=== PATIENT | female | born 1950 | race Caucasian/White ===

== ENCOUNTER → 2017-09-25 | Day surgery (SDC) | payer BC, MEDICARE ==
[2017-09-23 11:56] VITALS: BMI 27.4
[~2017-09-25] MED LIST: LACTATED RINGERS 1,000 ML IV SCH; LIDOCAINE 1% 20 ML VIAL (10MG/ML) FOR IV START INTRADERMA ONE; MIDAZOLAM 2 MG/2 ML VIAL IV PRN; MORPHINE SULFATE 2 MG/ML SYRINGE IV PRN; ONDANSETRON 4 MG/2 ML VIAL IVP PRN; PROPOFOL 10 MG/ML 20 ML VIAL IV ONE; SODIUM CHLORIDE 0.9% 500 ML IV ONE
[2017-09-25 10:15] VITALS: TEMP 97.6
--- NOTE | 2017-09-25 11:07 | P.PCN ---
Date of Procedure: 09/25/17 Procedure(s) Performed: BRIEF HISTORY: Patient is a 67-year-old pleasant white female, scheduled for an elective colonoscopy as a part of evaluation of change in bowel habits for the last 2 years duration. She is been having frequent stools between 5-6 a day with normal consistency but no blood or mucus in the stool. PROCEDURE PERFORMED: Colonoscopy. PREOPERATIVE DIAGNOSIS: change in bowel habits. IV sedation per Anesthesia. PROCEDURE: After informed consent was obtained, the patient, was brought into the endoscopy unit. IV sedation was administered by Anesthesia under continuous monitoring. Digital rectal examination was normal. Initially the Olympus CF- 160 flexible video colonoscope was then inserted in the rectum, gradually advanced into the distal sigmoid colon and further advancement was not possible. The scope was removed and a pediatric colonoscope was introduced into the rectum and despite multiple attempts I was not able to advance the scope beyond the sigmoid colon because of acute angle duration in this area. At this time I decided to terminate the procedure. Scattered sigmoid diverticula seen.. Retroflexion was performed in the rectum and no lesions were seen. The patient tolerated the procedure well. IMPRESSION: incomplete colonoscopy as described above Sigmoid diverticulosis RECOMMENDATIONS: Findings of this examination were discussed with the patient as well as her family. She'll be scheduled for a double contrast barium enema today.
[2017-09-25 11:15] VITALS: RESP 18
[2017-09-25 12:15] VITALS: BP 142/78; PULSE 78
--- NOTE | 2017-09-25 14:30 | FL ---
EXAMINATION TYPE: FL barium enema DATE OF EXAM: 09/25/2017 COMPARISON: NONE HISTORY: Incomplete colonoscopy, diarrhea and constipation TECHNIQUE: A double contrast barium enema study was attempted. Patient could not retain the contrast material or air. The exam was aborted. FINDINGS: Blow Off Worker view of the abdomen shows overall non-obstructive bowel gas pattern. Extensive diverticular change in the sigmoid colon is present, there is narrowing, contrast has not c oursed through this region bilaterally. Sigmoid colon is redundant. There is no extravasation from th e bowel. IMPRESSION: Exam is limited. Diverticulosis. There is likely extensive muscular hypertrophy.
== END ==
LOC: ORWHC2ENDO 09:51
PROVIDERS: ATTEND Internal Medicine Gastroenterology
DX: R19.7 Diarrhea, unspecified (principal); K57.30 Diverticulosis of large intestine without perforation or abscess without bleeding; G43.909 Migraine, unspecified, not intractable, without status migrainosus; F39 Unspecified mood [affective] disorder; Z79.82 Long term (current) use of aspirin; Z79.899 Other long term (current) drug therapy; Z79.1 Long term (current) use of non-steroidal anti-inflammatories (NSAID); Z88.1 Allergy status to other antibiotic agents; Z88.8 Allergy status to other drugs, medicaments and biological substances
CPT/HCPCS: 74270; 45330; J2704; 45378

== ENCOUNTER → 2017-09-29 | Outpatient (CLI) | payer MEDICARE ==
[2017-09-29 18:33] LABS: Blood Urea Nitrogen 17 mg/dL (7-17); Non-African American GFR(MDRD) >60 (>60 ml/min/1.73 sqM)
--- NOTE | 2017-09-29 19:55 | CT ---
EXAMINATION TYPE: CT abdomen pelvis w con DATE OF EXAM: 09/29/2017 COMPARISON: NONE HISTORY: Generalized pain with bowel changes for 2-[address] DLP: 872.2 mGycm Automated exposure control for dose reduction was used. TECHNIQUE: Helical acquisition of images was performed from the lung bases through the pelvis. CONTRAST: Performed with Oral Contrast and with IV Contrast, patient injected with 100 mL of Omnipaque 300. FINDINGS: Lung bases are clear. There is no pleural effusion. Liver spleen pancreas appear normal. Bile ducts are not dilated. Gallbladder is absent. There is no adrenal mass. Kidneys show satisfactory contrast opacification. There is no hydronephrosi s. There is no retroperitoneal adenopathy. There is no ascites. There are numerous barium-filled dive rticula in the sigmoid colon. Bladder distends smoothly. There is no evidence of a pelvic mass. I see no evidence of a bowel obstruction. Appendix is not seen. There is no sign of appendicitis. I see no bony destructive process. There is a mild degenerative first degree L4-5 spondylolisthesis. IMPRESSION: COLONIC DIVERTICULOSIS WITHOUT SIGN OF DIVERTICULITIS. NO SIGN OF ACUTE ABDOMEN AND PELVIS.
== END | disposition home or self-care (01) ==
LOC: RADCTMAIN 17:50
PROVIDERS: ATTEND Internal Medicine Gastroenterology
DX: K57.30 Diverticulosis of large intestine without perforation or abscess without bleeding (principal); R10.9 Unspecified abdominal pain
CPT/HCPCS: 82565; 84520; 74177; 36415; Q9967

== ENCOUNTER 2019-03-28 01:59 | Emergency (ER) | payer MEDICARE ==
--- NOTE | 2019-03-28 02:47 | ED ---
Abdominal Pain HPI - General Chief Complaint: Abdominal Pain Stated Complaint: abdominal pain Time Seen by Provider: 03/28/19 02:45 Source: patient Mode of arrival: ambulatory Limitations: no limitations - History of Present Illness Initial Comments: Josefina is a pleasant 68-year-old female with a history of diverticulosis identified on previous colonoscopy. Patient presents the emergency department today for evaluation of lower abdominal pain. Patient reports that she's been experiencing crampy and pressure-like lower abdominal pain which is worse at night. Patient reports that the pain is located in the left lower and right lower quadrant. Pain is described as pressure-like labor pain. Patient denies any associated fevers, chills, nausea or vomiting. Patient does state that she feels like she's been constipated. She states that she takes MiraLAX daily and has been having small bowel movements but still feels like she has backed up. Patient states she's been taking Bentyl and ibuprofen in the mornings which helps relieve the pain however by the end of the day the pain returns and is worsening. Patient denies any pain with urination, urinary frequency hesitancy or blood in her urine. Patient states her last colonoscopy was couple of years ago however was minimally successful due to inability to pass the scope and she subsequently underwent a computed tomography scan and was told that all is well. - Related Data Home Medications Medication Instructions Recorded Confirmed Aspirin [Adult Low Dose Aspirin EC] 81 mg PO HS 09/23/17 03/28/19 Brimonidine Tartrate [Alphagan P 1 drops BOTH EYES BID 09/23/17 03/28/19 0.2% Ophth Soln] Cholecalciferol [Vitamin D3] 1,000 unit PO DAILY 09/23/17 03/28/19 Ibuprofen 600 mg PO DAILY PRN 09/23/17 03/28/19 L.acidoph,Paracasei, B.lactis 1 each PO QAM 09/23/17 03/28/19 [Probiotic] Latanoprost Ophth [Xalatan 0.005%] 1 drops BOTH EYES HS 09/23/17 03/28/19 Magnesium Gluconate [Magonate] 500 mg PO HS 09/23/17 03/28/19 Melatonin 9 mg PO HS 09/23/17 03/28/19 [place]-3 Fatty Acids/Fish Oil [Fish 1 each PO BID 09/23/17 03/28/19 Oil 1,000 mg Softgel] Vit C/E/Zn/Coppr/Lutein/Zeaxan 1 each PO BID 09/23/17 03/28/19 [Preservision Areds 2 Softgel] buPROPion HCL [Wellbutrin SR] 200 mg PO BID 09/23/17 03/28/19 Allergies Allergy/AdvReac Type Severity Reaction Status Date / Time cephalexin [From Keflex] Allergy Itching,josé miguel Verified 09/25/17 10:07 h bandaids Allergy red skin, Uncoded 09/25/17 10:07 blister, swelling Review of Systems ROS Statement: Those systems with pertinent positive or pertinent negative responses have been documented in the HPI. ROS Other: All systems not noted in ROS Statement are negative. Past Medical History Additional Past Medical History / Comment(s): hx migraines, hx ulcer, constipation/diarrhea, frequent bowel movements with cramps, elevated triglycerides, History of Any Multi-Drug Resistant Organisms: None Reported Past Surgical History: Cholecystectomy, Tonsillectomy, Tubal Ligation Additional Past Surgical History / Comment(s): polyps removed from throat, sinus surgery, abdominoplasty Past Anesthesia/Blood Transfusion Reactions: No Reported Reaction Past Psychological History: No Psychological Hx Reported Smoking Status: Never smoker Past Alcohol Use History: Rare Past Drug Use History: None Reported - Past Family History Mother Family Medical History: Cancer General Exam - General Exam Comments Initial Comments: Physical Exam GENERAL: Patient is well-developed and well-nourished. Patient is nontoxic and well- hydrated and is in no distress. HENT: Normocephalic, Atraumatic. EYES: PERRL, EOMI PULMONARY: Unlabored respirations. No audible rales rhonchi or wheezing was noted. CARDIOVASCULAR: There is a regular rate and rhythm without any murmurs gallops or rubs. ABDOMEN: Soft with normal bowel sounds. I'll tenderness to deep palpation of the left and right lower quadrants SKIN: Skin is clear with no lesions or rashes and otherwise unremarkable. : Deferred NEUROLOGIC: Patient is alert and oriented x3. Moving all extremities spontaneously MUSCULOSKELETAL: Normal extremities with adequate strength and full range of motion. No lower extremity swelling or edema. No calf tenderness. PSYCHIATRIC: Normal psychiatric evaluation. Limitations: no limitations Limitations: no limitations Course Vital Signs 03/28/19 02:06 Temperature 98.0 F Pulse Rate 79 Respiratory 20 Rate Blood Pressure 171/95 O2 Sat by Pulse 99 Oximetry - Reevaluation(s) Reevaluation #1: The patient was reevaluated sleeping comfortably in bed Medical Decision Making - Medical Decision Making Patient was seen and evaluated history is obtained from the patient Labss and imaging were ordered Labs with mildly elevated ALT and alk phos however patient's abdominal pain is much lower on the right upper quadrant I don't feel this is related. Computed tomography scan reveals no acute abnormalities. Patient is noted to be sleeping comfortably throughout her ED stay. Upon reevaluation patient reports she is feeling well. She states maybe her discomfort is simply due to constipation she plans to increase her MiraLAX until feeling better and will follow up with primary care gastroenterology as needed. - Lab Data Result diagrams: 03/28/19 03:40 03/28/19 03:40 Lab Results 03/28/19 03/28/19 03/28/19 Range/Units 03:40 03:40 03:40 WBC 8.9 (3.8-10.6) k/uL RBC 4.33 (3.80-5.40) m/uL Hgb 12.9 (11.4-16.0) gm/dL Hct 37.8 (34.0-46.0) % MCV 87.4 (80.0-100.0) fL MCH 29.7 (25.0-35.0) pg MCHC 34.0 (31.0-37.0) g/dL RDW 13.1 (11.5-15.5) % Plt Count 307 (150-450) k/uL Neutrophils % 69 % Lymphocytes % 19 % Monocytes % 6 % Eosinophils % 2 % Basophils % 1 % Neutrophils # 6.1 (1.3-7.7) k/uL Lymphocytes # 1.7 (1.0-4.8) k/uL Monocytes # 0.6 (0-1.0) k/uL Eosinophils # 0.2 (0-0.7) k/uL Basophils # 0.1 (0-0.2) k/uL Sodium 137 (137-145) mmol/L Potassium 4.5 (3.5-5.1) mmol/L Chloride 104 (98-107) mmol/L Carbon Dioxide 25 (22-30) mmol/L Anion Gap 8 mmol/L BUN 17 (7-17) mg/dL Creatinine 0.67 (0.52-1.04) mg/dL Est GFR (CKD-EPI)AfAm >90 (>60 ml/min/1.73 sqM) Est GFR (CKD-EPI)NonAf >90 (>60 ml/min/1.73 sqM) Glucose 95 (74-99) mg/dL Calcium 9.7 (8.4-10.2) mg/dL Total Bilirubin 0.5 (0.2-1.3) mg/dL AST 30 (14-36) U/L ALT 55 H (9-52) U/L Alkaline Phosphatase 130 H (38-126) U/L Total Protein 7.3 (6.3-8.2) g/dL Albumin 4.2 (3.5-5.0) g/dL Amylase 43 (30-110) U/L Lipase 79 (23-300) U/L Urine Color Yellow Urine Appearance Cloudy H (Clear) Urine pH 6.0 (5.0-8.0) Ur Specific Universal 1.017 (1.001-1.035) Urine Protein Negative (Negative) Urine Glucose (UA) Negative (Negative) Urine Ketones Negative (Negative) Urine Blood Negative (Negative) Urine Nitrite Negative (Negative) Urine Bilirubin Negative (Negative) Urine Urobilinogen <2.0 (<2.0) mg/dL Ur Leukocyte Esterase Small H (Negative) Urine RBC 1 (0-5) /hpf Urine WBC 3 (0-5) /hpf Ur Squamous Epith Cells <1 (0-4) /hpf Hyaline Casts 1 (0-2) /lpf Urine Mucus Rare H (None) /hpf Disposition Clinical Impression: Abdominal pain Disposition: HOME SELF-CARE Condition: Stable Instructions (If sedation given, give patient instructions): Abdominal Pain (ED) Is patient prescribed a controlled substance at d/c from ED?: No Referrals: Kalina Arboleda MD [Primary Care Provider] - 1-2 days
--- NOTE | 2019-03-28 03:31 | XR ---
EXAM: XR Abdomen, 2 Views CLINICAL HISTORY: ITS.REASON XR Reason: abdominal pain TECHNIQUE: Frontal view of the abdomen/pelvis with upright view of the abdomen. COMPARISON: CT abdomen pelvis 09/29/2017. FINDINGS: Intraperitoneal space: No free air. Gastrointestinal tract: Paucity of abdominal bowel gas. No dilation. Bones/joints: Unremarkable. IMPRESSION: No acute abnormality.
[2019-03-28 04:04] LABS: Basophils # (A) 0.1 k/uL (0-0.2); Basophils % (A) 1 %; Eosinophils # (A) 0.2 k/uL (0-0.7); Eosinophils % (A) 2 %; HCT 37.8 % (34.0-46.0); HGB 12.9 gm/dL (11.4-16.0); Lymphocytes # (A) 1.7 k/uL (1.0-4.8); Lymphocytes % (A) 19 %; MCH 29.7 pg (25.0-35.0); MCV 87.4 fL (80.0-100.0); Mean Platelet Volume 6.6; Monocytes # (A) 0.6 k/uL (0-1.0); Monocytes % (A) 6 %; Neutrophils # (A) 6.1 k/uL (1.3-7.7); Neutrophils % (A) 69 %; Platelet Count 307 k/uL (150-450); RBC 4.33 m/uL (3.80-5.40); RDW 13.1 % (11.5-15.5); WBC 8.9 k/uL (3.8-10.6)
[2019-03-28 04:12] LABS: Appearance,Urine Cloudy (Clear); Bilirubin,Urine Negative (Negative); Blood,Urine Negative (Negative); Color,Urine Yellow; Glucose,Urine (UA) Negative (Negative); Hyaline Casts,Urine 1 /lpf (0-2); Ketones,Urine Negative (Negative); Leukocyte Esterase,Urine Small (Negative); Mucus,Urine Rare /hpf; Nitrite,Urine Negative (Negative); Protein,Urine Negative (Negative); RBC,Urine 1 /hpf (0-5); Specific Gravity,Urine 1.017 (1.001-1.035); Squamous Epithelial Cell,Urine <1 /hpf (0-4); Urobilinogen,Urine <2.0 mg/dL (<2.0); WBC,Urine 3 /hpf (0-5)
[2019-03-28 04:16] LABS: ALT 55 U/L (9-52); AST 30 U/L (14-36); Albumin 4.2 g/dL (3.5-5.0); Alkaline Phosphatase 130 U/L (38-126); Amylase 43 U/L (30-110); Anion Gap 8 mmol/L; Blood Urea Nitrogen 17 mg/dL (7-17); Calcium 9.7 mg/dL (8.4-10.2); Carbon Dioxide 25 mmol/L (22-30); Chloride 104 mmol/L (98-107); Glucose 95 mg/dL (74-99); Lipase 79 U/L (23-300); Potassium 4.5 mmol/L (3.5-5.1); Sodium 137 mmol/L (137-145); Total Bilirubin 0.5 mg/dL (0.2-1.3); Total Protein 7.3 g/dL (6.3-8.2)
[2019-03-28] MEDS ORDERED: METOCLOPRAMIDE 5 MG/ML 2 ML VIAL IVP STA (04:19)
[2019-03-28] MEDS ORDERED: diphenhydrAMINE 50 MG/ML 1 ML VIAL IVP STA (04:19)
--- NOTE | 2019-03-28 05:32 | CT ---
EXAM: CT Abdomen and Pelvis With Intravenous Contrast CLINICAL HISTORY: ITS.REASON CT Reason: Pain lower quadrants TECHNIQUE: Axial computed tomography images of the abdomen and pelvis with intravenous contrast. CTDI is 11.7, 10.6 mGy and DLP is 690.7, 423.9 mGy- cm. This CT exam was performed using one or more of the following dose reduction techniques: automated exposure control, adjustment of the mA and/or kV according to patient size, and/or use of iterative reconstruction technique. COMPARISON: CT abdomen and pelvis 09/29/2017. FINDINGS: Lung bases: Unremarkable. No mass. No consolidation. ABDOMEN: Liver: Unremarkable. No mass. Gallbladder and bile ducts: Cholecystectomy. No ductal dilation. Pancreas: Unremarkable. No mass. No ductal dilation. Spleen: Unremarkable. No splenomegaly. Adrenals: Unremarkable. No mass. Kidneys and ureters: Unremarkable. No solid mass. No hydronephrosis. Stomach and bowel: Sigmoid colon diverticulosis without evidence of acute diverticulitis. No obstruction. PELVIS: Appendix: No findings to suggest acute appendicitis. Bladder: Unremarkable. No mass. Reproductive: Unremarkable as visualized. ABDOMEN and PELVIS: Intraperitoneal space: Unremarkable. No free air. No significant fluid collection. Bones/joints: Degenerative changes seen throughout the lumbar spine. No acute fracture. No dislocation. Soft tissues: Unremarkable. Vasculature: Unremarkable. No abdominal aortic aneurysm. Lymph nodes: Unremarkable. No enlarged lymph nodes. IMPRESSION: Sigmoid colon diverticulosis without evidence of acute diverticulitis.
[2019-03-28 06:18] VITALS: BP 145/73; PULSE 92; RESP 18; TEMP 98.4
== END 2019-03-28 06:17 | disposition home or self-care (01) ==
LOC: EC 01:59
DX: R10.31 Right lower quadrant pain (principal); R10.32 Left lower quadrant pain; Z79.82 Long term (current) use of aspirin; Z79.899 Other long term (current) drug therapy; Z88.1 Allergy status to other antibiotic agents; Z91.048 Other nonmedicinal substance allergy status; Z90.49 Acquired absence of other specified parts of digestive tract
CPT/HCPCS: 36415; 80053; 82150; 83690; 85025; 81001; 74018; 74177; 99284; 96374; 96375; J1200; J2765; Q9967

== ENCOUNTER → 2020-04-10 | Outpatient (CLI) | payer MEDICARE ==
--- NOTE | 2020-04-10 09:14 | US ---
EXAMINATION TYPE: US pelvic complete DATE OF EXAM: 04/10/2020 COMPARISON: CT 03/28/2019 CLINICAL HISTORY: N92.4 Excessive bleeding in the premenopausal per. Spotting on and off TECHNIQUE: . Transabdominal sonographic images of the pelvis were acquired. Date of LMP: 17 years ago EXAM MEASUREMENTS: Uterus: 7.6 x 2.8 x 3.4 cm Endometrial Stripe: 0.3 cm Right Ovary: 2.6 x 2.0 x 2.0 cm Left Ovary: 2.0 x 0.9 x 1.7 cm 1. Uterus: Anteverted Hypoechoic area visualized measuring 3.5 x 3.5 x 2.8 cm, probable fibroid 2. Endometrium: wnl 3. Right Ovary: wnl 4. Left Ovary: wnl 5. Bilateral Adnexa: wnl 6. Posterior cul-de-sac: wnl IMPRESSION: Probable uterine fibroid. Otherwise unremarkable study.
== END | disposition home or self-care (01) ==
LOC: RADUSWWP 08:27
PROVIDERS: ATTEND Internal Medicine
DX: N92.4 Excessive bleeding in the premenopausal period (principal)
CPT/HCPCS: 76856

== ENCOUNTER → 2020-05-09 | Outpatient (CLI) | payer MEDICARE ==
--- NOTE | 2020-05-10 09:41 | XR ---
Left hip HISTORY: Pain 2 views of the left hip Bone mineralization, joint spaces and alignment are maintained. No fracture or dislocation. IMPRESSION: Normal left hip. Hip MRI may be of benefit.
== END | disposition home or self-care (01) ==
LOC: RADXRMAIN 17:01
PROVIDERS: ATTEND Internal Medicine
DX: M25.552 Pain in left hip (principal)
CPT/HCPCS: 73502

== ENCOUNTER → 2020-05-25 | Outpatient (CLI) | payer MEDICARE ==
--- NOTE | 2020-05-25 20:44 | ECHOS ---
STRESS ECHOCARDIOGRAM LUMASON: @@ Vial INDICATIONS: Chest pain. MEDICATIONS: Wellbutrin, eye drops, losartan. BASELINE HEART RATE: 76 BASELINE BLOOD PRESSURE: 136/98 MAXIMUM HEART RATE: 139 MAXIMUM BLOOD PRESSURE: 214/61 85% MPHR: 130 100% MPHR: 153 METS: 8.3 MAXIMUM STAGE REACHED: 3 TOTAL EXERCISE TIME: 7:00 CLINICAL INFORMATION: STRESS DATA: Heart rate 76. Pressure 136/98 mmHg. Baseline EKG showed sinus mechanism. The patient exercised on the treadmill according to Elvis protocol for a total of 7 minutes and achieved 8.3 METS. Max heart rate was 139, which is about 91% of maximum predicted heart rate. Maximum blood pressure was 214/61 mmHg. Clinically the patient did not have any symptoms of chest pain or chest discomfort during the testing or on recovery, and the EKG did not show any significant ST or T-wave abnormalities concerning for ischemia. ECHOCARDIOGRAM IMAGES: Echocardiogram images from parasternal long axis view, parasternal short axis view, apical 4-chamber and apical 2-chamber views were obtained as the baseline images, at the peak of the heart rate as well as on recovery. The echocardiogram images showed good augmentation in the left ventricular systolic function without any evidence of wall motion abnormalities concerning for ischemia. CONCLUSION: 1. Excellent exercise tolerance. 2. Normal EKG in response to exercise. 3. Normal echocardiogram in response to exercise. 4. Essentially normal stress echocardiogram for the patient. MMODL / IJN: [id number] /
== END | disposition home or self-care (01) ==
LOC: RADNMMAIN 09:12
PROVIDERS: ATTEND Internal Medicine
DX: R06.02 Shortness of breath (principal)
CPT/HCPCS: 93351

== ENCOUNTER → 2020-08-10 | Outpatient (CLI) | payer MEDICARE ==
[2020-08-10 09:11] LABS: Basophils # (A) 0.1 k/uL (0-0.2); Basophils % (A) 1 %; Eosinophils # (A) 0.3 k/uL (0-0.7); Eosinophils % (A) 3 %; HGB 13.5 gm/dL (11.4-16.0); Lymphocytes # (A) 1.9 k/uL (1.0-4.8); Lymphocytes % (A) 18 %; MCH 29.2 pg (25.0-35.0); MCHC 32.1 g/dL (31.0-37.0); Mean Platelet Volume 7.2; Monocytes # (A) 0.7 k/uL (0-1.0); Monocytes % (A) 6 %; Neutrophils # (A) 7.5 k/uL (1.3-7.7); Neutrophils % (A) 71 %; Platelet Count 362 k/uL (150-450); RBC 4.62 m/uL (3.80-5.40); RDW 12.9 % (11.5-15.5); WBC 10.7 k/uL (3.8-10.6)
[2020-08-10 10:53] LABS: African American GFR (CKD) 87.8 (60.0-200.0); Albumin 4.2 g/dL (3.80-4.90); Albumin/Globulin Ratio 1.91 (1.60-3.17); Anion Gap 8.8 mmol/L (4.00-12.00); BUN/Creat Ratio 22.5 Ratio (12.00-20.00); Calcium 9.3 mg/dL (8.7-10.3); Carbon Dioxide 29.2 mmol/L (21.6-31.8); Chol/HDL Ratio 2.73; Globulin 2.2 g/dL (1.6-3.3); LDL Cholesterol,Calculated 111.4 mg/dL (0.0-131.0); Non-African American GFR(CKD) 75.8 (60.0-200.0); Potassium 4.8 mmol/L (3.5-5.5); Total Bilirubin 0.5 mg/dL (0.2-1.2); Total Protein 6.4 g/dL (6.2-8.2); VLDL Calculation 37.6 mg/dL (5.00-40.00)
== END | disposition home or self-care (01) ==
LOC: LABWHC1 08:01
PROVIDERS: ATTEND Internal Medicine
DX: E78.2 Mixed hyperlipidemia (principal); K57.32 Diverticulitis of large intestine without perforation or abscess without bleeding; I10 Essential (primary) hypertension
CPT/HCPCS: 36415; 80053; 80061; 85025

== ENCOUNTER → 2021-03-13 | Outpatient (CLI) | payer MEDICARE ==
[2021-03-13 14:46] LABS: Basophils # (A) 0.05 X 10*3/uL (0.00-0.10); Basophils % (A) 0.6 %; Eosinophils # (A) 0.29 X 10*3/uL (0.04-0.35); Eosinophils % (A) 3.3 %; HGB 11.8 g/dL (12.0-15.0); Lymphocytes # (A) 1.45 X 10*3/uL (0.90-5.00); Lymphocytes % (A) 16.7 %; MCH 29.1 pg (27.0-32.0); MCHC 31.9 g/dL (32.0-37.0); MCV 91.4 fL (80.0-97.0); Monocytes # (A) 0.82 X 10*3/uL (0.20-1.00); Monocytes % (A) 9.5 %; Neutrophils # (A) 5.99 X 10*3/uL (1.80-7.70); Neutrophils % (A) 69.2 %; Platelet Count 329 X 10*3/uL (140-440); RBC 4.05 X 10*6/uL (4.10-5.20); RDW 12.5 % (11.5-14.5); WBC 8.66 X 10*3/uL (4.50-10.00)
[2021-03-14 03:30] LABS: African American GFR (CKD) 87.8 (60.0-200.0); Albumin 4.1 g/dL (3.80-4.90); Albumin/Globulin Ratio 1.71 (1.60-3.17); Anion Gap 7.1 mmol/L (4.00-12.00); Calcium 9.4 mg/dL (8.7-10.3); Carbon Dioxide 28.9 mmol/L (21.6-31.8); Chol/HDL Ratio 4.04; Globulin 2.4 g/dL (1.6-3.3); LDL Cholesterol,Calculated 111.2 mg/dL (0.0-131.0); Non-African American GFR(CKD) 75.8 (60.0-200.0); Potassium 4.9 mmol/L (3.5-5.5); Total Bilirubin 0.4 mg/dL (0.2-1.2); Total Protein 6.5 g/dL (6.2-8.2); VLDL Calculation 58.8 mg/dL (5.00-40.00)
== END | disposition home or self-care (01) ==
LOC: LABWHC1 07:46
PROVIDERS: ATTEND Internal Medicine
DX: E78.2 Mixed hyperlipidemia (principal); E55.9 Vitamin D deficiency, unspecified; I10 Essential (primary) hypertension
CPT/HCPCS: 36415; 80053; 80061; 82306; 84443; 85025

== ENCOUNTER → 2021-07-24 | Outpatient (CLI) | payer MEDICARE ==
--- NOTE | 2021-07-24 11:56 | P.STRESS ---
- Stress Test Note Stress Test Results/Findings: Exam Performed: stress echo exercise Exam Date: 07/24/21 Reason for Exam: chest pain Height: 5 ft 6 in Weight: 83.915 kg Protocol: Elvis Stage: III Duration of Exercise: 8 min Resting Heart Rate: 71 Resting Blood Pressure: 130/71 Maximum Achieved Heart Rate: 138 Maximum Achieved Blood Pressure: 210/57 85% PMHR: 128 100% PMHR: 151 METS: 9.5 Technologist Comment: Stress Test Results/Findings: Baseline 12-lead EKG shows sinus rhythm with normal ST segments Patient exercised on a Elvis protocol for 8 minutes Hypertensive response to exercise No ECG evidence for ischemia No arrhythmias Baseline 2-D echo showed normal LV size and systolic function without segmental wall motion abnormalities At peak exercise there was excellent augmentation of overall LV contractility without development 20 wall motion abnormalities @Recovery region global LV systolic function remained normal Impression No ECG or echocardiographic evidence for ischemia
== END | disposition home or self-care (01) ==
LOC: RADNMMAIN 10:00
PROVIDERS: ATTEND Internal Medicine
DX: R07.9 Chest pain, unspecified (principal)
CPT/HCPCS: 93351

== ENCOUNTER → 2021-08-13 | Outpatient (CLI) | payer MEDICARE ==
[2021-08-13 14:59] LABS: HCT 39.8 % (37.2-46.3); MCH 30.2 pg (27.0-32.0); MCHC 32.7 g/dL (32.0-37.0); MCV 92.3 fL (80.0-97.0); Mean Platelet Volume 9.9 fL (9.5-12.2); Platelet Count 354 X 10*3/uL (140-440); RBC 4.31 X 10*6/uL (4.10-5.20); RDW 12.5 % (11.5-14.5); WBC 8.73 X 10*3/uL (4.50-10.00)
[2021-08-13 15:41] LABS: African American GFR (CKD) 75.6 (60.0-200.0); Albumin 4.4 g/dL (3.80-4.90); Albumin/Globulin Ratio 1.57 (1.60-3.17); BUN/Creat Ratio 18.89 Ratio (12.00-20.00); Calcium 9.4 mg/dL (8.7-10.3); Chol/HDL Ratio 3.9; Globulin 2.8 g/dL (1.6-3.3); LDL Cholesterol,Calculated 134.4 mg/dL (0.0-131.0); Non-African American GFR(CKD) 65.2 (60.0-200.0); Total Bilirubin 0.5 mg/dL (0.3-1.2); Total Protein 7.2 g/dL (6.2-8.2); VLDL Calculation 48.6 mg/dL (5.00-40.00)
== END | disposition home or self-care (01) ==
LOC: LABWHC1 08:16
PROVIDERS: ATTEND Internal Medicine
DX: Z00.00 Encounter for general adult medical examination without abnormal findings (principal); I10 Essential (primary) hypertension
CPT/HCPCS: 36415; 80053; 80061; 84443; 85027

== ENCOUNTER → 2023-06-18 | Outpatient (CLI) | payer MEDICARE ==
[2023-06-18 17:55] LABS: Basophils # (A) 0.06 X 10*3/uL (0.00-0.10); Basophils % (A) 0.6 %; Eosinophils # (A) 0.26 X 10*3/uL (0.04-0.35); Eosinophils % (A) 2.7 %; HCT 41.5 % (37.2-46.3); HGB 13.3 d/dL (12.0-15.0); Lymphocytes # (A) 1.87 X 10*3/uL (0.90-5.00); Lymphocytes % (A) 19.1 %; MCV 90.6 FL (80.0-97.0); Mean Platelet Volume 9.9 FL (9.5-12.2); Monocytes # (A) 0.92 X 10*3/uL (0.20-1.00); Monocytes % (A) 9.4 %; NRBC Per 100 WBC 0 X 10*3/uL (0.00-0.01); Neutrophils # (A) 6.58 X 10*3/uL (1.80-7.70); Neutrophils % (A) 67.1 %; Platelet Count 350 X 10*3/uL (140-440); RBC 4.58 X 10*6/uL (4.10-5.20); RDW 12.8 % (11.5-14.5)
== END | disposition home or self-care (01) ==
LOC: LABPAT 11:47
PROVIDERS: ATTEND Obstetrics & Gynecology
DX: Z01.818 Encounter for other preprocedural examination (principal); I10 Essential (primary) hypertension; N88.2 Stricture and stenosis of cervix uteri; N95.0 Postmenopausal bleeding; R93.89 Abnormal findings on diagnostic imaging of other specified body structures; R94.31 Abnormal electrocardiogram [ECG] [EKG]
CPT/HCPCS: 85025; 93005

== ENCOUNTER 2023-06-24 09:15 | Day surgery (SDC) | payer MEDICARE ==
[~2023-06-24 09:15] MED LIST changes: +DEXAMETHASONE SOD PHOSPHATE 4 MG/ML 1 ML VIAL IV ONE; +HYDROmorphone 0.5 MG/0.5 ML SYRINGE IVP PRN; -LIDOCAINE 1% 20 ML VIAL (10MG/ML) FOR IV START INTRADERMA ONE; -MORPHINE SULFATE 2 MG/ML SYRINGE IV PRN; +ONDANSETRON 4 MG/2 ML VIAL IVP ONE; -ONDANSETRON 4 MG/2 ML VIAL IVP PRN; -PROPOFOL 10 MG/ML 20 ML VIAL IV ONE; +Pre Op ABX Message 1 EACH MISC MISCELLANE ONE; -SODIUM CHLORIDE 0.9% 500 ML IV ONE
[2023-06-24] MEDS ORDERED: fentaNYL (PF) 50 MCG/ML 2 ML AMP ONE (10:10)
[2023-06-24] MEDS ORDERED: PROPOFOL 10 MG/ML 20 ML VIAL IV ONE (10:10)
[2023-06-24] MEDS ORDERED: KETOROLAC 15 MG/ML 1 ML VIAL ONE (10:10)
[2023-06-24] MEDS ORDERED: MIDAZOLAM 2 MG/2 ML VIAL ONE (10:10)
[2023-06-24] MEDS ORDERED: SORBITOL 3% IRRIGATION 3,000 ML IRRIGATION ONE (10:31)
[2023-06-24] MEDS ORDERED: ONDANSETRON 4 MG/2 ML VIAL IVP PRN (10:51)
[2023-06-24] MEDS ORDERED: KETOROLAC 15 MG/ML 1 ML VIAL IVP PRN (10:51)
[2023-06-24] MEDS ORDERED: IBUPROFEN 600 MG TAB PO PRN (10:51)
[2023-06-24] MEDS ORDERED: diphenhydrAMINE 50 MG/ML 1 ML VIAL IVP PRN (10:51)
[2023-06-24] MEDS ORDERED: SIMETHICONE 80 MG CHEWABLE PO PRN (10:51)
[2023-06-24] MEDS ORDERED: METOCLOPRAMIDE 5 MG/ML 2 ML VIAL IVP PRN (10:51)
[2023-06-24] MEDS ORDERED: Acetaminophen-Codeine 300-30mg TAB PO PRN ×2 (10:51)
[2023-06-24 10:52] VITALS: TEMP 97.2
--- NOTE | 2023-06-24 10:59 | P.OP ---
Date of Procedure: 06/24/23 Preoperative Diagnosis: #1. Postmenopausal bleeding #2. Thickened endometrial stripe #3. Cervical stenosis Postoperative Diagnosis: Same Procedure(s) Performed: #1. Dilation and curettage Anesthesia: other (Gen. by LMA) Surgeon: Dustin Olivo Estimated Blood Loss (ml): 5 IV fluids (ml): 500 Urine output (ml): 50 Pathology: other (Endometrial curettings) Condition: stable Disposition: PACU Operative Findings: Gravid pelvic examination demonstrated a fairly narrow vaginal canal with a stricture located approximately 1-2 cm is in front of the cervix. The uterus was atrophic in size, anteverted, mobile, nontender, and normal in shape. Intraoperatively, I was able to grasp the anterior lip of the cervix but cervical os could not be clearly viewed. Initial attempts to enter the uterus with the sound were unsuccessful. The smallest curved dilator was utilized and felt to have entered through the cervical os and into the endometrial cavity. After dilation with approximately 2-3 dilators, the sound was introduced and uterus sounded to a depth of approximately 6-7 cm. The angle of the cervix and uterus would not allow for placement of a diagnostic hysteroscope which is rigid and straight. As a result, only curettage was performed. The smallest sharp curet was introduced into the cavity and the typical gritty in texture was encountered throughout. Minimal tissue was returned onto a Telfa in the vagina. There was no significant ongoing bleeding from any of the sites at the time of completion. Description of Procedure: Patient was prepped and draped in usual fashion after general anesthesia was administered by the anesthesiologist. A weighted speculum was placed and the stricture at the top of the vagina clearly noted. Using an anterior blade, the anterior lip of the cervix was noted and grasped with a single-tooth tenaculum. There was no significant descensus of the cervix and retraction failed to make the cervical os readily apparent. Bladder was drained of approximately 50 mL of clear gualberto urine prior to proceeding. An attempt to pass the uterine sound was unsuccessful and it was set aside. The smallest curved dilator was utilized and the cervix probed and ultimately was thought to be entered cleanly. After dilating 2 or 3 more sizes, the uterine sound was introduced and sounded to approximately 6-7 cm likely confirming entry into the uterine cavity. Serial dilation was carried out to admit the smallest sharp curet. The decision was made to abandon hysteroscopy as the angle of the cervix and uterus would not allow for placement of a rigid hysteroscope. The smallest sharp curet was then introduced into the endometrial cavity and thorough and circumferential curettage carried out onto a Telfa placed in the vagina. The typical gritty texture was encountered throughout and minimal tissue was produced. The polyp forceps were not used. After several passes, the instrumentation was removed. There is no significant ongoing bleeding from anywhere in the vagina or cervical region. All sponge, instrument, needle counts were correct. Estimated blood loss was 5 mL or less. There were no complications. The patient tolerated the procedure well and proceeded to the recovery room in stable condition.
[2023-06-24] MEDS ORDERED: LACTATED RINGERS 1,000 ML IV SCH (11:00)
[2023-06-24 11:28] VITALS: RESP 14
[2023-06-24 11:38] VITALS: BP 126/78; PULSE 75
[2023-06-25] MEDS ORDERED: ACETAMINOPHEN TAB 325 MG TAB PO PRN (10:52)
== END 2023-06-24 11:52 | disposition home or self-care (01) ==
LOC: OR 09:15
PROVIDERS: ATTEND Obstetrics & Gynecology
DX: N88.2 Stricture and stenosis of cervix uteri (principal); N95.0 Postmenopausal bleeding; I10 Essential (primary) hypertension; E78.5 Hyperlipidemia, unspecified; J45.909 Unspecified asthma, uncomplicated; Z79.82 Long term (current) use of aspirin; Z88.1 Allergy status to other antibiotic agents; Z82.49 Family history of ischemic heart disease and other diseases of the circulatory system; Z79.899 Other long term (current) drug therapy
CPT/HCPCS: 88305; 58558; J2250; J1100; J2405; J3010; J1885; J2704

== ENCOUNTER → 2025-06-14 | Outpatient (CLI) | payer MEDICARE ==
--- NOTE | 2025-06-14 13:18 | XR ---
EXAMINATION TYPE: XR chest 2V DATE OF EXAM: 06/14/2025 1:02 PM COMPARISON: None CLINICAL INDICATION: Female, 75 years old with history of R06.02, shortness of breath and fatigue, TECHNIQUE: PA and lateral views FINDINGS: The cardiomediastinal silhouette, aorta, and pulmonary vasculature are within normal limits. Lungs an d pleural spaces are clear. IMPRESSION: No acute cardiopulmonary process. [facility], Workstation: [id number], 06/14/2025 1:16 PM
--- NOTE | 2025-06-16 13:53 | CA ---
Stress Echo Report Josefina Mendoza Age: 75 Gender: F : 1950 Exam Date: 06/14/2025 11:30 Exam Location: [place] [facility] Ht (in): 65 Wt (lb): 180 Ordering Physician: Marshal Martinez MD Referring Physician: Marshal Martinez MD Engineering Teacher: PAUL Technologist Procedure CPT: Indication: I20.89 OTHER FORMS OF ANGINA PECTORIS ICD-9 Codes: Rhythm: Patient History: CHEST PAIN, DIFFICULTY IN BREATHING, HTN, HYPERCHOLESTEROLEMIA, FAMILY HX OF HEART DISEASE Cardiac Medications: Medications in past 24 hours: Contrast: N/A Stress Results Protocol: Elvis Total dose(mL): Exercise Duration (min:sec): 7:[address] Depression (mm): Angina Score: Aleman Score: METS: 8.7 Resting HR: 74 Resting BP: 116 / 56 Peak HR: 130 Peak BP: 184 / 57 Max Predicted HR: 147 88 % Max Predicted HR Target HR: 125 Double Product: [id number] Stress Summary: No chest pain or chest pressure. The test was terminated because of fatigue BP Response: Reason for Termination: MAX EXERTION/TARGET HR Cardiac Symptoms: NO SYMPTOMS ECG Analysis Resting ECG: Normal sinus rhythm heart rate 72 bpm Stress EC mm upsloping ST depressions noticed at peak stress. This is not diagnostic for ischemia. Arrhythmia: No sustained arrhythmias or ectopic beats noticed during the stress test Echo Analysis Resting Echo: Normal global and segmental systolic function with no resting regional wall motion abnormality Peak Echo Analysis: Normal augmentation of global and segmental systolic function with no stress-induced regional wall motion abnormality MEASUREMENTS (Male/Female) Normal Values CONCLUSIONS Fair exercise tolerance for age achieving 8.7 METS normal hemodynamic and clinical response to treadmill exercise Nonischemic ECG and echocardiographic response to treadmill exercise Overall low probability for severe obstructive CAD Dr Qamar George (Electronically Signed) Final Date: 15 June 2025 12:26
== END | disposition home or self-care (01) ==
LOC: RADNMMAIN 10:55
PROVIDERS: ATTEND Internal Medicine Geriatric Medicine
DX: I20.89 Other forms of angina pectoris (principal); I10 Essential (primary) hypertension; R06.02 Shortness of breath; R53.83 Other fatigue; E78.00 Pure hypercholesterolemia, unspecified; Z82.49 Family history of ischemic heart disease and other diseases of the circulatory system
CPT/HCPCS: 71046; 93351